=== PATIENT | female | born 1945 ===

== ENCOUNTER 2023-12-05 10:52 | Emergency (ER) | payer OTHER, MEDICARE ==
[~2023-12-05] VITALS: Ht 170.2 cm; Wt 48.1 kg
[2023-12-05 12:58] LABS: BASOPHILS # (AUTO) 0.05 K/uL (0.00-0.20); BASOPHILS % (AUTO) 0.9 % (0.0-5.0); EOSINOPHILS # (AUTO) 0.13 K/uL (0.00-0.70); EOSINOPHILS % (AUTO) 2.2 % (0.0-8.0); HEMATOCRIT 46.5 % (36-48); IMMATURE GRANULOCYTE ABSOLUTE 0.04 K/uL (0-1); LYMPHOCYTES # (AUTO) 1.5 K/uL (1.0-4.8); LYMPHOCYTES % (AUTO) 25.9 % (21.0-51.0); MEAN CORPUSCULAR HEMOGLOBIN 22.6 pg (27.0-33.0); MEAN CORPUSCULAR VOLUME 72.9 fL (79-99); MONOCYTES # (AUTO) 0.4 K/uL (0.1-1.0); MONOCYTES % (AUTO) 7.5 % (3.0-13.0); NEUTROPHILS # (AUTO) 3.7 K/uL (1.8-7.7); NEUTROPHILS % (AUTO) 62.8 % (40.0-77.0); PLATELET COUNT (AUTO) 159 K/uL (130-400); RED BLOOD CELL COUNT(AUTO) 6.38 MIL/uL (4.00-5.50); RED CELL DISTRIBUTION WIDTH 17.6 % (11.0-15.5); WHITE BLOOD COUNT (AUTO) 5.8 K/uL (4.8-10.8)
[2023-12-05 13:04] LABS: CREATININE 0.9 mg/dL (0.5-1.5); POTASSIUM 3.4 mmol/L (3.5-5.1)
[2023-12-05 13:19] LABS: RAPID GROUP A STREP negative (NEGATIVE)
[2023-12-05 13:25] LABS: INFLUENZA TYPE A Negative For Type A (NEGATIVE); INFLUENZA TYPE B Negative For Type B (NEGATIVE)
[2023-12-05 13:27] LABS: MAGNESIUM 2.5 mg/dL (1.80-2.40); THYROID STIMULATING HORMONE 1.23 uIU/mL (0.36-3.74)
[2023-12-05 13:52] LABS: COVID19 (SARS ANTIGEN RAPID) PRESUMPTIVE NEGATIVE (NEGATIVE)
[2023-12-05 14:33] LABS: APPEARANCE,URINE CLEAR (CLEAR); BILIRUBIN,URINE NEGATIVE (NEGATIVE); COLOR,URINE COLORLESS (YELLOW); GLUCOSE, URINE (UA) NEGATIVE (NEGATIVE); KETONES,URINE NEGATIVE (NEGATIVE); LEUKOCYTE ESTERASE ,URINE NEGATIVE Leu/uL (NEGATIVE); NITRATE,URINE NEGATIVE (NEGATIVE); OCCULT BLOOD,URINE NEGATIVE (NEGATIVE); PH,URINE 7.5 (5.0-8.0); PROTEIN,URINE 10 mg/dL (NEGATIVE); UROBILINOGEN,URINE 0.2 mg/dL (0.2-1.0)
[2023-12-05] MEDS: [UNRECOGNIZED DRUG - OTHER] IV ONE (14:36)
[2023-12-05] MEDS: CEFTRIAXONE 2GM VIAL IVPB ONE (14:36)
[2023-12-05] MEDS: POTASSIUM BICARB/CIT AC 25 MEQ TABLET.EFF PO ONE (14:36)
[2023-12-05 14:44] LABS: ADD UA MICROSCOPIC YES
[2023-12-05 14:47] LABS: SQUAMOUS EPITHELIAL CELL,UR RARE /HPF (0-2)
[2023-12-05 15:51] VITALS: BP 149/88; PULSE 80; RESP 18; O2SAT 97
[2023-12-05] MEDS: HYDRALAZINE 20MG/ML VIAL ONE (16:26)
[2023-12-05] MEDS: HYDRALAZINE 20MG/ML VIAL IV ONE (16:31)
== END 2023-12-05 16:32 | disposition home or self-care (01) ==
LOC: EDH 10:52
DX: G47.419 Narcolepsy without cataplexy (principal); E86.0 Dehydration; E87.6 Hypokalemia; F03.90 Unspecified dementia, unspecified severity, without behavioral disturbance, psychotic disturbance, mood disturbance, and anxiety; K21.9 Gastro-esophageal reflux disease without esophagitis; I10 Essential (primary) hypertension; M19.90 Unspecified osteoarthritis, unspecified site; Z20.822 Contact with and (suspected) exposure to COVID-19
CPT/HCPCS: 99284; 96365; 70450; 96366; 87426; 84443; 82550; 83735; 84484; 80048; 85025; 87880; 87804 ×2; 83605; 81001; 36415; 96372; 93005; J7030; J0696; J0360